=== PATIENT | female | born 1980 | race Caucasian/White ===

== ENCOUNTER 2017-07-10 08:00 | Inpatient (IN) ==
[2017-07-10] MEDS ORDERED: Famotidine 20 MG/2 ML VIAL IVP PRN (08:30)
[2017-07-10] MEDS ORDERED: Ringers Solution, Lactated 1,000 ML IVC SCH (08:30)
[2017-07-10] MEDS ORDERED: Metoclopramide 10 MG/2 ML VIAL IVP PRN (08:30)
[2017-07-10] MEDS ORDERED: miSOPROStol 25 MCG TABLET PO PRN (08:30)
[2017-07-10] MEDS ORDERED: Naloxone 0.4 MG/ML INJ IVP PRN (08:30)
[2017-07-10 09:04] LABS: Basophils % 0.2 %; Eosinophils # 0.1 K/mcL (0.0-0.6); Eosinophils % 0.7 %; Hematocrit 34.7 % (35.3-44.9); Hemoglobin 10.6 g/dL (11.5-15.4); Immature Granulocytes % 1.5 % (0-4); Lymphocytes # 1.4 K/mcL (0.6-4.6); Lymphocytes % 14.4 %; Mean Corpuscular HGB Conc 30.5 g/dL (31.6-35.5); Mean Corpuscular Hemoglobin 24.5 pg (28.0-33.3); Mean Corpuscular Volume 80.1 fL (83.0-100.0); Monocytes # 0.8 K/mcL (0.0-1.3); Monocytes % 8.4 %; Neutrophils # 7.4 K/mcL (1.6-8.9); Platelet Count 169 K/mcL (140-400); Red Blood Count 4.33 M/mcL (3.82-4.97); Red Cell Distribution Width 14.5 % (11.5-14.5); Segmented Neutrophils % 74.8 %
--- NOTE | 2017-07-10 09:47 | OB/GYN History & Physical ---
Date of Encounter: 07/10/17 Time of Encounter: 09:42 Assessment and Plan (1) 39 weeks gestation of Current visit: Yes Status: Acute induction of labor po cytocec nubain prn epidural if/when desired anticipate vaginal delivery (2) Factor V Leiden Current visit: Yes Status: Acute (3) Two vessel umbilical cord, antepartum Current visit: Yes Status: Acute History of Present Illness Chief complaint: induction HPI: Ms. Zamudio is a 36 year old female at 39.1 weeks gestation here today for induction of labor for factor V Leiden and 2 vessel umbilical cord. Her has been complicated by the aforementioned problems and anticoagulation during . Denies vaginal bleeding, loss of fluid, dizziness, blurred vision, headaches. Reports good movement. Labs: GBS -, Rubella immune blood type A+ Past Med Surg Social Fam HX - Past Medical History Medical history: other (Factor V Leiden) Obstetrical History - Pregnancies : 4 Para: 1 Term: 1 : 0 Ab's: 2 Livin Medications and Allergies Folic Acid [Folic Acid] 1 / PO DAILY 07/10/17 [History] Pnv95/Ferrous Fumarate/FA [ Vitamin Tablet] 1 / PO 07/10/17 [History] Allergies No Known Allergies Allergy (Verified 07/10/17 09:09) Review of System OB - Constitutional Constitutional ROS IM: as per HPI Exam - Constitutional Constitutional: well developed, well nourished, no acute distress, average body habitus - HEENT HEENT: Normocephaly, Mucus Membranes Moist - Neck Neck exam: normal inspection - Lungs Respiratory exam: CTAB - Cardiovascular Cardiovascular exam: RRR, +S1, +S2 - Abdomen Abdomen: Present: bowel sounds normal, gravid, non tender - Extremities Extremities exam: normal capillary refill, normal inspection, warm Results Result Diagrams: 07/10/17 08:30 Abnormal lab results Hgb 10.6 g/dL (11.5-15.4) L 07/10/17 08:30 Hct 34.7 % (35.3-44.9) L 07/10/17 08:30 MCV 80.1 fL (83.0-100.0) L 07/10/17 08:30 MCH 24.5 pg (28.0-33.3) L 07/10/17 08:30 MCHC 30.5 g/dL (31.6-35.5) L 07/10/17 08:30 MPV 13.0 fL (9.4-12.4) H 07/10/17 08:30 All other labs normal. - VTE Reasons for not Prescribing Prophylaxis: Treatment not Indicated - Low risk for VTE
[2017-07-10 10:04] LABS: Prothrombin Time 11.1 Seconds (9.4-12.1)
--- NOTE | 2017-07-10 12:56 | Anesthesia Evaluation PreOp ---
Date of Encounter: 07/10/17 Time of Encounter: 11:30 - Past History Planned Operation: epidural Cardiac History: Denies any Significant Hx, Other (mild mr on echo in her 20's, no physical restrictions, denies sob or chest pain with exertion) Pulmonary History: Denies Any Significant HX L[employer]ER History: Denies Any Significant HX Other Medical History: GERD, Other (factor 5 lieden, hx blood clot lower extremity, patient stopped heparin on saturday) Anesthesia History: No Prior Anesthetic Complications (1 vag delivery, nasal surgery, no anesthetic complications) : Yes Test: Positive Alcohol Use: none Drug use: none Medications and Allergies Folic Acid [Folic Acid] 1 / PO DAILY 07/10/17 [History] Pnv95/Ferrous Fumarate/FA [ Vitamin Tablet] 1 / PO 07/10/17 [History] Allergies No Known Allergies Allergy (Verified 07/10/17 09:09) - Meds/Allergy Pre-op Review Medications Reviewed: Yes Allergies Reviewed: Yes Beta Blockers on Current Med List: No Anesthesia Results - Labs 07/10/17 08:30 Anesthesia Exam 3 Vital Signs Time 1130 BP 116/74 Pulse 83 Resp 16 O2 Sat Height: 66 inches Weight: 96 kg NPO (# of Hours): 8 Pain Scale: 3 Pain Scale Used: Numeric (1 - 10) - HEENT Pupil (Motor): Pupils equal Mallampati: III Teeth: Normal Oral Opening: Greater than 3 - LUM[employer] LOC: Oriented LUM[employer]ER Motor: Normal RUE, Normal LUE, Normal RLE, Normal LLE, Normal Face [employer] Sensory: Normal: RUE, LUE, RLE, LLE, Face - Cardiac Rhythm: Regular Murmur: None JVD: No Carotid Bruit: No - Pulmonary Breath Sounds: bilateral Clear Respiratory Effort: Symmetrical Anesthesia Assess/Plan ASA Score: 2, 3 Anesthetic Plan: Regional Monitoring Plan: Standard Monitors Recovery Plan: Other
[2017-07-10] MEDS ORDERED: *HR* FentaNYL (PF) 100 MCG/2 ML VIAL EP ONE (12:59)
[2017-07-10] MEDS ORDERED: Bupivacaine-MPF 0.25% 10 ML VIAL EP ONE (12:59)
[2017-07-10] MEDS ORDERED: Oxytocin 20 units/ LR 1000 mL 20 UNIT/1,000 ML BAG IVC SCH (13:00)
[2017-07-10] MEDS ORDERED: Epidural Premix (fent/bupiv) 110 ML EP SCH (13:00)
[2017-07-10] MEDS ORDERED: *HR* FentaNYL (PF) 100 MCG/2 ML VIAL ONE (15:41)
[2017-07-10] MEDS ORDERED: Bupivacaine-MPF 0.25% 10 ML VIAL ONE (15:41)
[2017-07-10] MEDS ORDERED: Epidural Premix (fent/bupiv) 110 ML EP ONE (15:42)
--- NOTE | 2017-07-10 16:46 | OB Labor Progress Note ---
Date of Encounter: 07/10/17 Time of Encounter: 16:45 Labor Progress Note - Subjective Subjective: Patient comfortable after the epidural. She denies any complaints. - Cervix Cervix: 5/80/-2 - Heart Tones Heart Tones: 125, reactive category 1 - Onaka Onaka: q 1-2 minutes - Interventions Interventions: AROM with blood tinged fluid. - Plan Plan: Continue Pitocin induction
--- NOTE | 2017-07-10 17:36 | Anesthesia Procedures ---
Date of Encounter: 07/10/17 Time of Encounter: 15:59 Procedures: Anesthesia - Epidural/Spinal Patient ID/Chart reviewed: Yes Patient examined: Yes OB Eval: Gestational age: 39 weeks 1 day OB Eval: : 4 OB Eval: Hx Para: 1 OB Eval: Dilated at (cm): 4 OB Eval: Contractions: Non-stressed pattern Consent Obtained: Yes Supplemental Oxygen: None/Room Air Site Prep: Aseptic Technique, Sterile prep and drape, Povidone-Iodine 1% Patient position: upright Local Anesthetic: Lidocaine 1% Amount of Local Anesthetic used: 3 Touhy Needle Gauge: 18 Touhy Needle Depth (cm): 5 Catheter Depth at Skin (cm): 12 Test Dose (1.5% Lido + Epi): Volume given (mls): 3 Test Dose Result: Negative Loading Dose: 0.25% Marcaine (mls): 5 Loading Dose: Fentanyl (mcg): 100 Loading Dose: Other: 3 ml saline Loading Dose Administered: Thru Catheter Infusion Med: 0.125% Bupivacaine w/ 2 mcg/ml Fentanyl Infusion Rate (mls/hr): [address]: Tegaderm, Tape Interspace Used: L3-L4 Loss of Resistance (VALENCIA): Yes (air) Blood: No CSF: No Paresthesia: No Procedure: 3 Vital Signs Time 1559 start 1604 cath 1613 bolus 1629 finish BP 130/72 133/63 122/65 108/55 Pulse 90 90 112 103 Resp 16 16 16 16 O2 Sat 98 98 98 98 heart tones 120's throughout, pump started at 14 ml per hour, patient tolerated well
[2017-07-10] MEDS ORDERED: *HR* Ropivacaine/PF 0.2% 10 ML AMPUL ONE (18:45)
--- NOTE | 2017-07-10 19:01 | Anesthesia Progress Note ---
Date of Encounter: 07/10/17 Time of Encounter: 18:48 Anesthesia Note - Note Note: 07/10/17 18:59 patient complaining of low abd pressure with contractions, bolus dose of ropivicaine 0.2% given in incremental dosing over 5 minutes 3 Vital Signs Time 1848 1856 BP 132/70 151/65 Pulse 95 96 Resp 16 16 O2 Sat
--- NOTE | 2017-07-10 22:30 | OB/GYN Procedure Note ---
Delivery - Delivery Date: 07/10/17 Provider: Xin Queen Intrapartum events: none Delivery induction: AROM, oxytocin, misoprostol Delivery monitor: external FHT, external uterine Anesthesia: local, epidural Estimated Blood Loss: 300 - Infant (s) A Infant Delivery Date: 07/10/17 Delivery Time: 22:01 Presentation: vertex Position: OA Route of delivery: Gender: Female Viability: Viable Pounds: 8 Ounces: 9 Weight Gram: 3.885 kg at 1 minute: 8 at 5 mins: 9 Shoulder Dystocia: not encountered Placenta: spontaneous Cord: 2 umbilical vessels, delivered through nuchal - Repair Episiotomy: none Laceration Description: Perineal - 2nd Degree - Complications Delivery complications: none - Disposition Mom disposition: stable in LDR Economy disposition: stable in LDR - Comments Comments: Called to room with patient complete and +2 station. Under maternal effort she delivered a viable female weighing 8 lbs. 9 oz. and Apgars 8 and 9 at one and 5 minutes respectively over second-degree perineal laceration. Following delivery of the head there was a nuchal cord noted patient delivered through. There was no shoulder dystocia encountered. The 's body delivered with maternal effort. The infant was placed on mom's abdomen. The cord was allowed to cease pulsations and then was double clamped and cut. Placenta delivered spontaneously, complete, and intact with a three-vessel cord. Second-degree perineal laceration was repaired using 3-0 Vicryl in standard fashion with 1% lidocaine injected for anesthesia. Mother and are recovering in the LDR in stable condition.
[2017-07-11] MEDS ORDERED: Lanolin 7 G OINT...G. TP PRN (01:33)
[2017-07-11] MEDS ORDERED: Oxytocin 20 units/ LR 1000 mL 20 UNIT/1,000 ML BAG IVC SCH (01:33)
[2017-07-11] MEDS ORDERED: Benzocaine/Menthol 56 GM AEROSOL SPRAY TP PRN (01:33)
[2017-07-11] MEDS ORDERED: Acetaminophen 325 MG TABLET PO PRN (01:33)
[2017-07-11] MEDS: Ibuprofen 600 MG TABLET PO PRN ×2 (02:15→19:49)
[2017-07-11] MEDS: Prenatal Vit/FA 1 EACH TABLET PO SCH (08:19)
[2017-07-11] MEDS: *HR* Enoxaparin 40 MG/0.4 ML SYRINGE SQ SCH (08:19)
--- NOTE | 2017-07-11 08:38 | OB/GYN Progress Note ---
Date of Encounter: 07/11/17 Time of Encounter: 08:35 - Assessment and Plan (1) Vaginal delivery Current Visit: Yes Status: Acute Continue routine orders Follow VS closely, nurse to notify if changes Monitor fundal height and firmness Anticipate discharge home tonight or tomorrow with POC per consult with Dr Murguia Subjective - Subjective Principal diagnosis: Vaginal Delivery Interval history: Patient doing well day 1 s/p vaginal delivery Pain is well controlled Lochia is light and without clots Fundus is firm and at 2 above u, no clots are expressed with firm pressure Patient tolerating oral diet and passing flatus; urinating without difficulty is going well Anticipate discharge home today or tomorrow POC per consult with Dr Murguia. Patient reports: appetite normal, voiding normally, pain well controlled, ambulating normally : doing well, nursing well Objective - Latest Vital Signs Latest vital signs: Vital Signs Temp Pulse Resp BP Pulse Ox 07/11/17 07:40 98.0 F 82 16 94/52 96 07/11/17 02:56 98.2 F 96 16 107/69 97 07/11/17 02:07 98.2 F 89 16 116/69 96 07/11/17 01:10 98.1 F 92 14 119/70 96 07/10/17 09:21 97.1 F L 83 14 116/74 99 Intake and Output 07/10/17 07/11/17 07/11/17 23:59 07:59 15:59 Intake Total 100 / 100 Output Total 450 / 450 1500 / 1500 700 / 700 Balance -450 / -450 -1400 / -1400 -700 / -700 Intake: Oral 100 / 100 Output: Urine 150 / 150 1500 / 1500 700 / 700 Estimated Blood Loss 300 / 300 Other: Weight 94.483 kg Patient Weight 07/11/17 23:59 Weight 94.483 kg - Exam Lungs: bilateral: normal Chest: Normal S1, Normal S2 Extremities: Present: normal Abdomen: Present: normal appearance, soft Uterus: Present: normal, firm Uterus Position: 2 Fingers Above Umbilicus, Midline - Labs Labs: Laboratory Results - last 24 hr 07/10/17 07/10/17 08:30 09:50 WBC 9.9 RBC 4.33 Hgb 10.6 L Hct 34.7 L MCV 80.1 L MCH 24.5 L MCHC 30.5 L RDW 14.5 Plt Count 169 MPV 13.0 H Immature Gran % 1.5 Seg Neutrophils % 74.8 Lymphocytes % 14.4 Monocytes % 8.4 Eosinophils % 0.7 Basophils % 0.2 Neutrophils # 7.4 Lymphocytes # 1.4 Monocytes # 0.8 Eosinophils # 0.1 Basophils # 0.0 PT 11.1 INR 1.0
[2017-07-12 09:03] VITALS: BP 95/61
[2017-07-12] MEDS: *HR* Enoxaparin 40 MG/0.4 ML SYRINGE SQ SCH (09:15)
[2017-07-12] MEDS: Ibuprofen 600 MG TABLET PO PRN (09:17)
[2017-07-12] MEDS: Prenatal Vit/FA 1 EACH TABLET PO SCH (09:17)
== END 2017-07-12 15:35 | disposition home or self-care (01) | DRG 775 ==
LOC: 1NENULAB 08:12 → 1NENUOBS 07-11 01:54
PROVIDERS: ADMIT Obstetrics & Gynecology; ATTEND Obstetrics & Gynecology